=== PATIENT | female | born 1955 | race Caucasian/White ===

== ENCOUNTER 2017-05-21 13:21 | Outpatient (CLI) | payer OTHER ==
--- NOTE | 2017-05-21 14:07 | DIAGNOSTIC IMAGING REPORT ---
PROCEDURE: MG BILATERAL SCREENING W/CAD INDICATION: Screening, personal history of left breast atypical ductal hyperplasia status post lumpectomy. TECHNIQUE: Standard CC and MLO views bilaterally. Computer aided detection was used. COMPARISON: 05/16/2016, 12/20/2015, 03/17/2015 FINDINGS: Heterogeneous, moderately dense is present bilaterally. Left upper outer quadrant demonstrates the glandular architectural distortion with overlying skin thickening consistent with postsurgical changes, similar compared to prior studies. There is a glandular asymmetry in the upper right breast seen on the MLO view only measuring approximately 6 mm. No new areas of architectural distortion , or suspicious microcalcifications. IMPRESSION: 1. 6 mm right upper breast focal asymmetry. Further evaluation with spot compression, direct lateral right mammogram, and ultrasound if indicated is recommended. 2. The patient will be contacted. RESULT CODE: 0- Incomplete; needs additional evaluation. A. A negative report should not delay biopsy if a dominant or clinically suspicious mass is present. 10-15% of cancers are not identified by x-ray. B. A negative report may reinforce clinical impression. C. Adenosis and dense breasts may obscure an underlying neoplasm. D. False positive reports average 6-10%. E.. A yearly screening mammogram is recommended. A reminder letter will be scheduled.
== END 2017-05-21 23:00 ==
LOC: MAM SRH 13:21
DX: Z98.890 Other specified postprocedural states (principal); Z12.31 Encounter for screening mammogram for malignant neoplasm of breast

== ENCOUNTER 2017-05-28 13:01 | Outpatient (CLI) | payer OTHER ==
--- NOTE | 2017-05-28 15:30 | DIAGNOSTIC IMAGING REPORT ---
PROCEDURE: MG UNILATERAL DIAG-RT W/CAD INDICATION: Follow-up right breast asymmetry. TECHNIQUE: True lateral digital view of the right breast. In addition, spot compression CC and MLO views were obtained of the upper right breast (region of clinical concern). Finally, high-resolution right breast ultrasound was performed (18 mHz) with limited comparison images of the left breast. COMPARISON: Comparison made to 05/21/2017, 05/16/2016. FINDINGS: MAMMOGRAM: Computer-aided detection applied. Dense parenchymal pattern as with scattered dystrophic calcifications. No evidence of abnormality upper outer right breast. BREAST ULTRASOUND: Mildly heterogeneous normal parenchyma. No evidence of mass or cyst. IMPRESSION: 1. Negative mammogram and negative right breast ultrasound. No evidence of mass or underlying abnormality. 2. Resume routine screening schedule (May 2018). 3. Findings discussed with the patient. RESULT CODE: 1- Negative. A. A negative report should not delay biopsy if a dominant or clinically suspicious mass is present. 10-15% of cancers are not identified by x-ray. B. A negative report may reinforce clinical impression. C. Adenosis and dense breasts may obscure an underlying neoplasm. D. False positive reports average 6-10%. E.. A yearly screening mammogram is recommended. A reminder letter will be scheduled.
== END 2017-05-28 23:00 ==
LOC: MAM SRH 13:01
DX: N64.89 Other specified disorders of breast (principal)